=== PATIENT | male | born 1990 | race African-American/Black ===

== ENCOUNTER 2016-10-06 18:21 | Inpatient (IN) | payer OTHER ==
[~2016-10-06] VITALS: Ht 165.1 cm; Wt 59.1 kg
[2016-10-06 18:33] VITALS: BP 118/50
[2016-10-06 18:51] LABS: BASO % 0.5 % (0.0-1.0); EOS # 0.1 10*3/uL (0.0-0.4); EOS % 1.7 % (1.0-4.0); HEMATOCRIT 39.2 % (42.0-52.0); HEMOGLOBIN 13.1 g/dl (14.0-18.0); LYMPH # 2.8 10*3/uL (1.3-4.4); LYMPH % 37.1 % (27.0-41.0); MEAN CELL VOLUME 87.1 fl (80.0-94.0); MEAN CORPUSCULAR HGB 29.1 pg (27.0-31.0); MEAN CORPUSCULAR HGB CONC 33.4 g/dl (33.0-37.0); MEAN PLATELET VOLUME 9.1 fl (9.6-12.3); MONO # 0.6 10*3/uL (0.1-1.0); MONO % 8.2 % (3.0-9.0); NEUT # 3.9 10*3/uL (2.3-7.9); NEUT % 52.1 % (47.0-73.0); PLATELET COUNT AUTOMATED 360 10*3/uL (130-400); RED CELL DISTRI WIDTH 13.5 % (0-14.5); WHITE BLOOD COUNT 7.6 10*3/uL (4.8-10.8)
[2016-10-06 19:09] LABS: ALBUMIN 3.6 gm/dl (3.1-4.5); ALKALINE PHOSPHATASE 110 U/L (45-117); BILIRUBIN, DIRECT 0.1 mg/dL (0.0-0.2); BILIRUBIN, TOTAL 0.4 mg/dl (0.2-1.0); BUN 11 mg/dl (7-24); CARBON DIOXIDE 32 mmol/L (21-32); CHLORIDE 104 mmol/L (98-107); EST GLOM FILT AFRICAN AMERICAN > 60 ml/min; GLUCOSE 97 mg/dL (65-99); POTASSIUM 3.5 mmol/L (3.5-5.1); SGOT/AST 16 IU/L (3-35); SGPT/ALT 53 U/L (12-78); SODIUM 143 mmol/L (136-145); TOTAL PROTEIN 7.8 gm/dL (6.4-8.2)
[2016-10-06 20:07] VITALS: BP 147/94
[2016-10-06 20:15] VITALS: BP 144/69
[2016-10-06 20:16] LABS: BILIRUBIN NEGATIVE (NEGATIVE); BLOOD NEGATIVE (NEGATIVE); CLARITY SL CLOUDY (CLEAR); COLOR YELLOW (YELLOW); GLUCOSE NEGATIVE (NEGATIVE); KETONE NEGATIVE (NEGATIVE); LEUKO ESTERASE NEGATIVE (NEGATIVE); NITRITE NEGATIVE (NEGATIVE); PROTEIN NEGATIVE (NEGATIVE); SPECIFIC GRAVITY >= 1.030 (1.005-1.030); UROBILINOGEN 0.2 E.U./dl (0.2-1.0)
[2016-10-06 20:22] LABS: EPITHELIAL CELLS 0-2; RBC 0-2 rbc/hpf (0-2); WBC 0-2 wbc/hpf (0-5)
[2016-10-06 20:23] LABS: BACTERIA 1+; MUCOUS TRACE; URINE REFLEX COMMENT NO (NO)
[2016-10-06 20:25] LABS: URINE AMPHETAMINES < 1000 (1000ng/ml); URINE BARBITURATES < 200 (200ng/ml); URINE COCAINE < 300 (300ng/ml)
[2016-10-07] VITALS (7 sets, daily range): BP systolic 98–137; BP diastolic 46–72
[2016-10-08] VITALS: BP 111/55
[2016-10-08 07:56] VITALS: BP 107/48
[2016-10-08 12:00] VITALS: BP 96/50
[2016-10-08 16:00] VITALS: BP 125/63
[2016-10-08 20:00] VITALS: BP 134/58
[2016-10-09] VITALS: BP 116/61
[2016-10-09 08:00] VITALS: BP 115/57
[2016-10-09] MEDS ORDERED: METHOCARBAMOL750 M1 PO (10:13)
[2016-10-09] MEDS ORDERED: CARBIDOPA/LEVOD1 TA1 PO (10:13)
[2016-10-09] MEDS ORDERED: ATARAX,VISTARIL50 MG PO (10:13)
[2016-10-09 11:47] VITALS: BP 103/52
[2016-10-09 16:00] VITALS: BP 121/56
== END 2016-10-09 19:45 | disposition home or self-care (01) | DRG 897 ==
LOC: ED 18:21 → EDHOLD 19:05 → 4E 19:05
PROVIDERS: Emergency Medicine
DX: F11.23 Opioid dependence with withdrawal (principal); D64.9 Anemia, unspecified; F12.10 Cannabis abuse, uncomplicated; F17.200 Nicotine dependence, unspecified, uncomplicated; Z83.3 Family history of diabetes mellitus; Z81.1 Family history of alcohol abuse and dependence; Z71.6 Tobacco abuse counseling